=== PATIENT | female | born 1995 | race Caucasian/White ===

== ENCOUNTER → 2022-01-20 | Outpatient (CLI) | payer OTHER ==
[2022-01-20 18:55] LABS: BASO # 0.03 K/mm3 (0.02-0.10); EOS # 0.12 K/mm3 (0.04-0.40); EOS % 1.3 % (1.0-5.0); HEMATOCRIT 42.3 % (37.0-47.0); HEMOGLOBIN 14.6 g/dL (12.5-16.0); LYMPH# 2.38 K/mm3 (1.50-4.00); MEAN CELL VOLUME 89 fl (78-100); MEAN CORPUSCULAR HEMOGLOBIN 31 pg (27-31); MEAN CORPUSCULAR HGB CONC 35 g/dL (33-37); MEAN PLATELET VOLUME 10.5 fl (7.4-10.4); MONO # 0.62 K/mm3 (0.20-0.80); NEU # 5.87 K/mm3 (1.40-6.50); PLATELET COUNT 215 K/mm3 (130-400); RED BLOOD COUNT 4.76 M/mm3 (4.10-5.30); RED CELL DISTRIBUTION WIDTH 11.2 % (11.5-14.5)
== END ==
LOC: LAB 18:30
PROVIDERS: Nurse Practitioner Family
DX: L53.9 Erythematous condition, unspecified (principal)